=== PATIENT | male | born 1970 | race Caucasian/White ===

== ENCOUNTER 2024-08-20 08:05 | Inpatient (IN) | payer OTHER ==
[~2024-08-20] VITALS: Ht 180.3 cm; Wt 85.9 kg
[2024-08-20] MEDS ORDERED: Ondansetron HCl 2 MG / ML 2ML Vial IV ONE (11:10)
[2024-08-20] MEDS ORDERED: Morphine Sulfate 4 MG/1 ML Injection IV ONE (11:10)
[2024-08-20 11:53] LABS: BASOPHILS ABSOLUTE AUTO 0.09 K/mm3 (0.00-0.23); BASOPHILS PERCENT AUTO 1 % (0-2); EOSINOPHILS ABSOLUTE AUTO 0.04 K/mm3 (0.00-0.68); EOSINOPHILS PERCENT AUTO 0 % (0-6); Hematocrit 48.6 % (37.0-53.0); Hemoglobin 17.3 g/dL (13.5-17.5); IMMATURE GRAN ABSOLUTE AUTO 0.05 K/mm3 (0.00-0.10); IMMATURE GRAN PERCENT AUTO 0 % (0-1); LYMPHOCYTES PERCENT AUTO 15 % (21-46); MONOCYTES ABSOLUTE AUTO 0.64 K/mm3 (0.16-1.47); MONOCYTES PERCENT AUTO 4 % (4-13); Mean Corpuscular HGB 31.6 pg (26.0-34.0); Mean Corpuscular HGB Conc 35.6 g/dL (31.5-36.5); Mean Corpuscular Volume 89 fL (80-100); Mean Platelet Volume 9.1 fL (9.1-12.4); NEUTROPHILS ABSOLUTE AUTO 11.61 K/mm3 (1.96-9.15); NEUTROPHILS PERCENT AUTO 79 % (41-73); Platelet Count 161 K/mm3 (150-400); RDW Coefficient Variation 12.2 % (11.7-14.2); RDW Standard Deviation 40.3 fL (35.1-46.3); Red Blood Cell Count 5.48 M/mm3 (4.30-5.90); White Blood Cell Count 14.63 K/mm3 (4.00-11.30)
[2024-08-20] MEDS ORDERED: Nicotine 14 MG PATCH TOP ONE (12:00)
[2024-08-20 12:26] LABS: Albumin, Blood 3.4 g/dL (3.4-5.0); Albumin/Globulin Ratio 0.9 (0.8-1.8); Bun/Creatinine Ratio 19.5 (12.0-20.0); Calcium, Blood 8.7 mg/dL (8.5-10.1); Creatinine, Blood 0.82 mg/dL (0.60-1.20); Globulin, Blood 3.7 g/dL (2.2-4.0); Magnesium, Blood 2.2 mg/dL (1.6-2.4); Potassium, Blood 4.1 mmol/L (3.5-5.5); Total Protein, Blood 7.1 g/dL (6.4-8.2)
[2024-08-20 13:28] LABS: Source, Urine Clean Catch
[2024-08-20 13:50] LABS: Appearance, Urine Clear (Clear); Bilirubin, Urine Neg (Neg); Blood, Urine Neg (Neg); Color, Urine Yellow (P-Yellow); Glucose Qualitative, Urine 4+ (Neg); Ketones, Urine 2+ (Neg); Leukocyte Esterase, Urine Neg (Neg); Nitrite, Urine Neg (Neg); Protein, Urine Neg (Neg); Specific Gravity, Urine 1.015 (1.003-1.022); Urobilinogen, Urine 1+ (Normal)
[2024-08-20] MEDS ORDERED: Ondansetron HCl 2 MG / ML 2ML Vial IV PRN (17:25)
[2024-08-20] MEDS ORDERED: FLU VACC TS2024-25(6MOS UP)/PF 45 MCG/0.5 ML SYRINGE IM SCH (17:25)
[2024-08-20] MEDS ORDERED: Morphine Sulfate 4 MG/1 ML Injection IV PRN (17:30)
[2024-08-20] MEDS ORDERED: Insulin Human Lispro 100 Units/ML 3ML Syringe SC SCH (18:00)
[2024-08-20] MEDS ORDERED: Lactated Ringer's 1,000 ML IV SCH (18:00)
[2024-08-20 18:29] VITALS: BP 144/79
[2024-08-20 19:17] VITALS: BP 124/68
--- NOTE | 2024-08-20 19:23 | NUR ---
PT ARRIVED TO THE ROOM FROM ER AT APPROXIMATELY 1800. PAIN MANAGED UPON ARRIVAL. PT ORIENTED TO ROOM, UNIT AND CALL LIGHT USE. LUNG SOUNDS CLEAR, BOWEL SOUND PRESENT BUT HYPOACITVE, HEART SOUNDS REGULAR. PT ASSISTED INTO GOWN. PT HAS DISCOLORATION TO SKIN OVER HERNIA SITE, OTHERWISE SKIN WNL. BEDSIDE REPORT GIVEN TO WALT PEDRO RN.
[2024-08-20] MEDS ORDERED: GLIP5 PO (20:16)
[2024-08-20] MEDS ORDERED: METF500 PO (20:17)
[2024-08-20] MEDS ORDERED: ROSUVASTATIN CA20 MG PO (20:18)
[2024-08-20] MEDS ORDERED: LISINOPRIL-HCT1 EAC1 PO (20:20)
[2024-08-21 05:17] VITALS: BP 132/82
[2024-08-21 05:40] LABS: BASOPHILS ABSOLUTE AUTO 0.05 K/mm3 (0.00-0.23); BASOPHILS PERCENT AUTO 1 % (0-2); EOSINOPHILS ABSOLUTE AUTO 0.26 K/mm3 (0.00-0.68); EOSINOPHILS PERCENT AUTO 3 % (0-6); Hematocrit 44.8 % (37.0-53.0); Hemoglobin 15.9 g/dL (13.5-17.5); IMMATURE GRAN ABSOLUTE AUTO 0.05 K/mm3 (0.00-0.10); IMMATURE GRAN PERCENT AUTO 1 % (0-1); LYMPHOCYTES ABSOLUTE AUTO 3.51 K/mm3 (0.84-5.20); LYMPHOCYTES PERCENT AUTO 34 % (21-46); MONOCYTES ABSOLUTE AUTO 0.63 K/mm3 (0.16-1.47); MONOCYTES PERCENT AUTO 6 % (4-13); Mean Corpuscular HGB 31.7 pg (26.0-34.0); Mean Corpuscular HGB Conc 35.5 g/dL (31.5-36.5); Mean Corpuscular Volume 89 fL (80-100); Mean Platelet Volume 9.4 fL (9.1-12.4); NEUTROPHILS ABSOLUTE AUTO 5.69 K/mm3 (1.96-9.15); NEUTROPHILS PERCENT AUTO 56 % (41-73); Platelet Count 154 K/mm3 (150-400); RDW Coefficient Variation 12.4 % (11.7-14.2); RDW Standard Deviation 40.8 fL (35.1-46.3); Red Blood Cell Count 5.02 M/mm3 (4.30-5.90); White Blood Cell Count 10.19 K/mm3 (4.00-11.30)
[2024-08-21 06:03] LABS: Albumin, Blood 2.9 g/dL (3.4-5.0); Albumin/Globulin Ratio 0.9 (0.8-1.8); Bilirubin, Total 1.1 mg/dL (0.1-1.0); Bun/Creatinine Ratio 15.4 (12.0-20.0); Calcium, Blood 8.3 mg/dL (8.5-10.1); Creatinine, Blood 0.84 mg/dL (0.60-1.20); Globulin, Blood 3.2 g/dL (2.2-4.0); Potassium, Blood 3.9 mmol/L (3.5-5.5); Total Protein, Blood 6.1 g/dL (6.4-8.2)
[2024-08-21 07:33] VITALS: BP 121/86
--- NOTE | 2024-08-21 08:03 | NUR ---
SHIFT SUMMARY NOC. PT ADMIT FOR ENCARCERATED HERNIA. PT HAS GRAPEFRUIT SIZE HERNIA TO THE RIGHT OF UMBILICUS. MARGINS MARKED AROUND REDNESS AT START OF SHIFT. REDNESS REMAINS WITHIN MARGINS. PT MEDICATED WITH IV MORPHINE FOR PAIN. PT NPO THIS SHIFT, ICE CHIPS STOPPED AT 0300 FOR POTENTIAL PROCEDURE. BED IN LOWEST POSITION, CALL LIGHT IN REACH.
--- NOTE | 2024-08-21 08:48 | NUR ---
DR AGUAYO IN ROOM FOR ZIYAD
[2024-08-21] MEDS ORDERED: Nicotine 21 MG PATCH TOP SCH (09:00)
--- NOTE | 2024-08-21 14:11 | NUR ---
NEW IV ESTABLISHED IN R FOREARM TO MAKE IT EASIER FOR IVF TO INFUSE W/O OCCLUSION. PT HAS ADEQUATE PAIN CONTROL AT THIS TIME. PT HAS BEEN WORKING ON REDUCING THE HERNIA IN ABD BUT IT IS STILL PROTRUDING. REDNESS HAS NOT SPREAD OUTSIDE OF LINES MARKED BY NOC SHIFT NURSE. IVF INFUSING PER ORDER. PT HAS NOT VOIDED SINCE THIS MORNING. PT OK TO TAKE SIPS OF WATER PER DR AGUAYO AND HAS BEEN GEENA WELL. CALL LIGHT IN REACH.
[2024-08-21 14:38] VITALS: BP 140/70
--- NOTE | 2024-08-21 17:45 | NUR ---
PT STS HE HAS LOW BACK PAIN. STS IT STARTED THIS MORNING AND HAS BEEN GETTING WORSE. PT HAS VOIDED TWICE TOTAL OF 750ML TEA COLORED URINE. DR PEÑA CALLED AND NOTIFIED.
--- NOTE | 2024-08-21 18:15 | NUR ---
SHIFT SUMMARY PT A/OX. GEENA SIPS OF WATER. IVF INFUSING PER ORDER. PT VOIDED X2. HERNIA STILL PRESENT, NOT ABLE TO KEEP REDUCED. MEDICATED PRN FOR PAIN. DR AGUAYO AWARE. NO ISSUES DURING SHIFT. AMB WITH SBA FOR CORD MANAGEMENT.
[2024-08-21 20:16] VITALS: BP 143/88
[2024-08-22 05:09] VITALS: BP 158/85
[2024-08-22 05:46] LABS: Bun/Creatinine Ratio 13.8 (12.0-20.0); Calcium, Blood 8.2 mg/dL (8.5-10.1); Creatinine, Blood 0.8 mg/dL (0.60-1.20); Potassium, Blood 4.1 mmol/L (3.5-5.5)
--- NOTE | 2024-08-22 07:27 | NUR ---
SHIFT SUMMARY NOC. PT ADMIT FOR ENCARCERATED HERNIA. PT HAS LARGE PROTRUDING HERNIA IN THE PERIUMBILICAL AREA AND TOWARDS RIGHT SIDE. REDNESS WITHIN MARKED MARGINS RECEEDING. PT'S PAIN MANAGED WITH 4MG OF IV MORPHINE. PT DENIES N/V, NPO STATUS BUT ALLOWED SIPS OF WATER AND ICE CHIPS, TOLERATING. PT CONTINUES TO HAVE ACUTE BACK PAIN RELIEVED WITH MEDS. URINE COLOR IS IMPROVING THROUGHOUT SHIFT. BED IN LOWEST POSITION. CALL LIGHT IN REACH.
[2024-08-22 07:28] VITALS: BP 129/73
[2024-08-22] MEDS ORDERED: Ipratropium/Albuterol SulF 2.5-0.5MG/3 ML Amp INH SCH (09:05)
[2024-08-22] MEDS ORDERED: Sod Phosphate/Sod Biphosphate 132 ML BTL PR ONE (11:45)
[2024-08-22] MEDS ORDERED: Ketorolac Tromethamine 30mg Vial IV ONE (14:00)
--- NOTE | 2024-08-22 15:06 | NUR ---
N/V PT RATING PAIN 10/10 AFTER FAILED SWALLOW EVALUATION, REPORTING N/V AND SEVERE ABD AFTERWARDS. MEDICATED PER EMAR FOR PAIN AND N/V, WHICH IS NOT MANAGING SX WELL. DR. AGUAYO NOTIFIED, ORDER FOR NG OBTAINED. WILL IMPLEMENT ORDERS DIRECTED.
[2024-08-22 15:34] VITALS: BP 121/79
[2024-08-22 19:17] VITALS: BP 132/93
--- NOTE | 2024-08-22 19:35 | NUR ---
SHIFT SUMMARY A/OX4 WITH VSS. NPO. PT REFUSING NG TUBE, RISK VERSUS BENEFITS EDUCATION PROVIDED. CHARGE AWARE. INTERMITTENT N/V, 400ML OUT THIS SHIFT OF GREEN FLUID. NS INFUSING PER ORDERS. MEDICATED PER EMAR FOR PAIN, REPORTS RELIEF . SWALLOW EVALUATION COMPLETED TODAY. PLAN FOR POTENTIAL SURGERY TOMORROW. PT UP IND IN ROOM. HAS CALL LIGHT IN REACH. PT ABLE TO MAKE NEEDS KNOWN. REPORT GIVEN TO DAY RNWALT
[2024-08-22] MEDS ORDERED: Ketorolac Tromethamine 15mg Vial IV PRN (20:00)
--- NOTE | 2024-08-22 23:30 | NUR ---
NG TUBE PLACED PER ORDERS. NG TUBE PLACED INTO RIGHT NARE ON FIRST ATTEMPT AFTER PT MEDICATED FOR PAIN WITH MORPHINE. EDUCATION PROVIDED PRIOR TO PROCEDURE. PT GAVE VERBAL CONSENT. PT TOLERATED WELL WITH VERBALIZED IMPROVEMENT OF PAIN, AND N/V. DISTENSION VISIBLY IMPROVED. SEE I&OS FOR DETAILS ON QUANTITY.
[2024-08-23] VITALS (20 sets, daily range): BP systolic 114–152; BP diastolic 78–92
--- NOTE | 2024-08-23 00:04 | NUR ---
COMMUNICATION AFTER NG TUBE PLACEMENT, RESIDENT CAME TO FLOOR. TALKED WITH RESIDENT ABOUT NEEDING A CHEST X-RAY FOR PLACEMENT OF NG TUBE. PT HAD PUT OUT OVER 2000MLS AFTER PLACEMENT. RESIDENT DECICDED NO NEED FOR PLACEMENT CHECK DUE TO COPIUOS AMOUNTS OF OUTPUT.
[2024-08-23 04:15] LABS: Hematocrit 50.8 % (37.0-53.0); Hemoglobin 18.4 g/dL (13.5-17.5)
[2024-08-23 04:34] LABS: Bun/Creatinine Ratio 14.9 (12.0-20.0); Creatinine, Blood 1.74 mg/dL (0.60-1.20); Potassium, Blood 3.6 mmol/L (3.5-5.5)
[2024-08-23 07:46] LABS: BASOPHILS ABSOLUTE AUTO 0.04 K/mm3 (0.00-0.23); BASOPHILS PERCENT AUTO 1 % (0-2); EOSINOPHILS ABSOLUTE AUTO 0.07 K/mm3 (0.00-0.68); EOSINOPHILS PERCENT AUTO 1 % (0-6); IMMATURE GRAN ABSOLUTE AUTO 0.02 K/mm3 (0.00-0.10); IMMATURE GRAN PERCENT AUTO 0 % (0-1); LYMPHOCYTES ABSOLUTE AUTO 2.12 K/mm3 (0.84-5.20); LYMPHOCYTES PERCENT AUTO 37 % (21-46); MONOCYTES ABSOLUTE AUTO 0.83 K/mm3 (0.16-1.47); MONOCYTES PERCENT AUTO 14 % (4-13); Mean Corpuscular HGB 31.3 pg (26.0-34.0); Mean Corpuscular HGB Conc 35.3 g/dL (31.5-36.5); Mean Corpuscular Volume 89 fL (80-100); Mean Platelet Volume 10.2 fL (9.1-12.4); NEUTROPHILS ABSOLUTE AUTO 2.69 K/mm3 (1.96-9.15); NEUTROPHILS PERCENT AUTO 47 % (41-73); Platelet Count 215 K/mm3 (150-400); RDW Coefficient Variation 12.4 % (11.7-14.2); RDW Standard Deviation 40.8 fL (35.1-46.3); Red Blood Cell Count 5.81 M/mm3 (4.30-5.90); White Blood Cell Count 5.77 K/mm3 (4.00-11.30)
--- NOTE | 2024-08-23 08:02 | NUR ---
SHIFT SUMMARY NOC. PT ADMIT FOR ENCARCERRATED HERNIA. PT HAS LARGE HERNIA IN RIGHT SIDE OF UMBILICUS. REDNESS OUTLINED ON ADMIT REMAINS INSIDE MARGINS. DISTENSION GREATLY IMPROVED POST NG TUBE PLACEMENT. LARGE AMOUNTS OF GREEN/BROWN OUTPUT PULLED WITH LIS. PT'S PAIN MANAGED WITH MORPHINE. PT DENIES NEED FOR PAIN MEDS AFTER NG PLACEMENT. PT NPO STATUS WITH SCANT ICE CUBES FOR THROAT DISCOMFORT. PT REPORTS IMPROVEMENT IN ACUTE BACK PAIN WITH NG PLACEMENT. DISCUSSED DECREASED KIDNEY FUNCTION IN LABS WITH ONCOMING NURSE ARACELIS MCNEILL RN. PT VOIDING AND HAD UNMEASURED VOIDS, DISCUSSED STRICT I&OS WITH PT. PT VERBALIZED UNDERSTANDING. CALL LIGHT IN REACH.
[2024-08-23] MEDS ORDERED: Morphine Sulfate 4 MG/1 ML Injection IV PRN (08:05)
[2024-08-23] MEDS ORDERED: Albuterol 2.5 MG/3 ML VIAL INH PRN (08:30)
[2024-08-23] MEDS ORDERED: Lactated Ringer's 1,000 ML IV SCH ×3 (09:00→22:31)
--- NOTE | 2024-08-23 13:23 | NUR ---
History, Chart, Medications and Allergies reviewed before start of procedure. Patient confirms NPO status and agrees with scheduled surgery. Patient's NG to low intermittent sx. Continuous biox intact. Biox 92% on 4l O2/NC. Patient chooses to sleep when not spoken to, but responds promptly and appropriately to questions and instructions.
[2024-08-23] MEDS ORDERED: Piperacillin/Tazobactam Sod 3.375 GM in NS 100 ML IV SCH (13:50)
[2024-08-23] MEDS ORDERED: Sugammadex Sodium 200 MG/2ML SDV (100 MG/ML) ONE (14:03)
[2024-08-23] MEDS ORDERED: Ondansetron HCl 2 MG / ML 2ML Vial ONE (14:03)
[2024-08-23] MEDS ORDERED: Ketamine HCl 100 MG / ML 5ML Vial ONE (14:03)
[2024-08-23] MEDS ORDERED: HYDROmorphone HCl/Pf 1MG SYR ONE (14:03)
[2024-08-23] MEDS ORDERED: propofoL 40 ML IV ONE (14:03)
[2024-08-23] MEDS ORDERED: Dexamethasone Sod Phos 10 MG/ML 1ML VIAL ONE ×2 (14:03→18:27)
[2024-08-23] MEDS ORDERED: Rocuronium Bromide 10 MG/ML 5ML Injection IV ONE ×2 (14:03→17:19)
--- NOTE | 2024-08-23 14:18 | NUR ---
PATIENT CARE TURNED OVER TO VICKIE TALAVERA RN. REPORT GIVEN.
[2024-08-23] MEDS ORDERED: propofoL 100 ML IV ONE (14:59)
[2024-08-23] MEDS ORDERED: Bupivacaine 0.5% HCl 5 MG/ML 30MLVIAL ONE (15:04)
[2024-08-23] MEDS ORDERED: Piperacillin/Tazobactam Sod 3.375 GM ONE (15:22)
--- NOTE | 2024-08-23 16:25 | NUR ---
08/23/24 9315 Claire Aly BRUISE NOTED UNDERNEATH BLOOD PRESSURE CUFF ON RIGHT UPPER ARM WHEN POSITIONING PATIENT PRIOR TO START OF PROCEDURE. AWARE. BLOOD PRESSURE CUFF WAS READJUSTED TO AVOID BRUISE.
[2024-08-23] MEDS ORDERED: Phenylephrine HCl 100 MCG/ML-NS 10MLSYR (1MG/10ML) ONE (16:40)
[2024-08-23] MEDS ORDERED: FentaNYL Citrate 50 MCG/ML 2 ML Injection ONE ×2 (17:49→18:45)
[2024-08-23] MEDS ORDERED: propofoL 20 ML IV ONE (18:55)
--- NOTE | 2024-08-23 19:26 | NUR ---
SHIFT SUMMARY PT PICKED UP FOR SURGERY AROUND 1245, PT HAS BEEN BACK THERE SINCE, PER PACU THEY ARE ESTIMATING AFTER SHIFT CHANGE BEFORE HE IS FINISHED. NO ACUTE EVENTS THIS ON THE FLOOR.
[2024-08-23] MEDS ORDERED: Albuterol 2.5 MG/3 ML VIAL ONE (20:47)
[2024-08-24] VITALS (7 sets, daily range): BP systolic 115–137; BP diastolic 73–86
[2024-08-24] MEDS ORDERED: Piperacillin/Tazobactam Sod 3.375 GM in NS 100 ML IV SCH
--- NOTE | 2024-08-24 01:30 | NUR ---
POSTOP DESATS PT AWAKE IN BED WITH 02 CANNULA RESTING ON PTS CHEST.PT SATS 83-87% RA.PT HAS HAD DESATS WITH POSTOP VS PT ADMITS TO REMOVING HIS 02 WHEN IT "IRRITATES " HIM. THIS RN REPLACED O2 AND DISCUSSED RISKS WITH PT.PT VERB UNDERSTANDING OF RISK.SATS GREATER THAN 90% WHEN N/C REPLACED.
--- NOTE | 2024-08-24 04:13 | NUR ---
RESPIRATORY STATUS THIS AM, PT NOT ABLE TO MAINTAIN SATS ON 3L O2. PT SATS WERE 87-88%. PT DENIES SOB, AND DOES NOT APPEAR IN RESP DISTRESS. LUNGS CLEAR UPPER LOBES, BUT TIGHT AND DIM IN BASES. ABD IS DISTENDED POST OP, AND PT REPORTS SOME DIFFICULTY GETTING DEEP BREATHS IN A RESULT. NG TUBE IN PLACE AND DRAINING FOR DECOMPRESSION. RESPIRATORY THERAPY CALLED, AND ROUNDED ON PT. RT INCREASED HIGH FLOW NASAL CANNULA TO 15L, HOWEVER SATS WERE STILL 89%. RT RECOMMENDED AIRVO. PT PLACED ON AIRVO WITH SETTINGS PER RT. DR. BAUGH CALLED, SBAR GIVEN AND HE WAS NOTIFIED OF CHANGE IN PT RESPIRATORY STATUS AND THE NEED FOR AIRVO. DR. BAUGH STATES IT IS MORE THAN LIKELY CAUSED BY ABD DISTENTION. RECEIVED ORDER FOR AIRVO. DR. BAUGH TO REVIEW PT CHART AND STATES HE WILL PUT IN ADDITIONAL ORDERS IF NEEDED. AIRVO IN PLACE WITH SETTINGS PER RT. AND SATS ARE CURRENTLY 95%.
--- NOTE | 2024-08-24 04:40 | NUR ---
RESP STATUS PT MAINTAINING SATS AT 95%, PT ON AIRVO, SETTINGS PER RT AT 50L, 92%
[2024-08-24 05:17] LABS: BASOPHILS ABSOLUTE AUTO 0.05 K/mm3 (0.00-0.23); BASOPHILS PERCENT AUTO 1 % (0-2); EOSINOPHILS ABSOLUTE AUTO 0.01 K/mm3 (0.00-0.68); EOSINOPHILS PERCENT AUTO 0 % (0-6); Hemoglobin 15.9 g/dL (13.5-17.5); IMMATURE GRAN ABSOLUTE AUTO 0.01 K/mm3 (0.00-0.10); IMMATURE GRAN PERCENT AUTO 0 % (0-1); LYMPHOCYTES ABSOLUTE AUTO 1.01 K/mm3 (0.84-5.20); LYMPHOCYTES PERCENT AUTO 17 % (21-46); MONOCYTES ABSOLUTE AUTO 0.81 K/mm3 (0.16-1.47); MONOCYTES PERCENT AUTO 14 % (4-13); Mean Corpuscular HGB 31.5 pg (26.0-34.0); Mean Corpuscular HGB Conc 34.6 g/dL (31.5-36.5); Mean Corpuscular Volume 91 fL (80-100); Mean Platelet Volume 9.7 fL (9.1-12.4); NEUTROPHILS ABSOLUTE AUTO 3.91 K/mm3 (1.96-9.15); NEUTROPHILS PERCENT AUTO 67 % (41-73); Platelet Count 212 K/mm3 (150-400); RDW Coefficient Variation 12.5 % (11.7-14.2); Red Blood Cell Count 5.04 M/mm3 (4.30-5.90)
[2024-08-24 06:01] LABS: Bun/Creatinine Ratio 29.5 (12.0-20.0); Calcium, Blood 8.4 mg/dL (8.5-10.1); Creatinine, Blood 1.12 mg/dL (0.60-1.20); Potassium, Blood 3.4 mmol/L (3.5-5.5)
--- NOTE | 2024-08-24 06:07 | NUR ---
CHEST X-RAY FOLLOWED WITH DR. BAUGH REGARDING CHEST X-RAY. DR. BAUGH REVIEWED IMAGING. HE STATES THAT HE DID NOT FIND ANYTHING ACUTE ON X-RAY. NO ADDITIONAL ORDERS AT THIS TIME. PT RESTING IN BED, MAINTAINING SATS ON HEATED HIGHFLOW.
--- NOTE | 2024-08-24 07:31 | NUR ---
SHIFT SUMMARY PT POD O INCARCERATED HERNIA REPAIR. PT ARRIVED TO UNIT FROM PACU A LITTLE AFTER 2100. CLARISA IN PLACE COMPRESSED, WITH MIDLINE INCISION. SMALL AMOUNT OF SHADOWING ON DRESSING UNCHANGED FROM WHEN PT ARRIVED FROM PACU. GAUZE DRESSING TO LEFT ABD WNL, UMBILICAL DRESSING WNL. DEION DRAIN WITH SS DISCHARGE. THIS AM WITH 0400 ASSESSMENT I NOTED A SPONGY BULGE AT UPPER PART OF INCISION ON ABD. IT IS NOT PAINFUL TO TOUCH OR RED. NO INCREASED DRAINAGE AT SURGICAL SITE. LABORATORY ADMINISTRATIVE DIRECTOR GISELA NOTIFIED AND ASSESSED PT. SHE DISCUSSED MONITORING LABS. LABS WNL, HGB STABLE. PT REPORTED MINIMAL PAIN FOR MOST OF THE NIGHT POST OP, BUT DID REPORT SOME INCREASED PAIN THIS AM. IV MORPHINE EFFECTIVE FOR PAIN. PT HAS REQUIERED O2 SINCE ARRIVING FROM PACU AND PRIOR TO SURGERY. PT DESATS WITHOUT O2 IN PLACE. PT OBSERVED BY LABORATORY ADMINISTRATIVE DIRECTOR REMOVING O2 AND REPORTED TO HER THAT HE REMOVED WHEN IT IRRITATED HIM. SEE PREVIOUS NURSES NOTE. PT HAD BEEN ON 3L O2. HOWEVER, AROUND 0330 THIS AM, PT BEGAN REQUIRING MORE O2 TO MAINTAIN SATS ABOVE 90%. PT DENIES SOB, AND RESP APPEAR E/U. LUNGS TIGHT AND DIM IN BASES. PT DOES NOT APPEAR IN ACUTE RESP DISTRESS, DESPITE O2 SATS. ABD HOWEVER IS STILL DISTENDED, AND DR. BAUGH ATTRITUBES THE DISTENTION MAKING IT DIFFICULT TO TAKE DEEP BREATHS IN. CHEST X-RAY ORDERED AND WAS REVIEWED BY AMAURI, AND HE REPORTS NO ACUTE FINDINGS. PT SATS WNL ON AIRVO, AT 95%. NG TUBE TO LIS, WITH GREEN DISCHARGE. PT ABLE TO HAVE SMALL AMOUNT OF ICE CHIPS PER ORDERS. PT NO OOB YET SINCE SURGERY. PT HEIN PATENT AND DRAINING. BED IN LOWEST POSITION, CALL LIGHT WITHIN REACH.
[2024-08-24] MEDS ORDERED: Potassium Chl 10MEQ/Water100ML 100 ML IV ONE (07:50)
[2024-08-24] MEDS ORDERED: NS 250 ML IV PRN (08:10)
[2024-08-24] MEDS ORDERED: Morphine Sulfate 4 MG/1 ML Injection IV ONE (08:10)
[2024-08-24] MEDS ORDERED: MORPHINE SULFATE 1 MG/ML IV PRN (10:40)
[2024-08-24] MEDS ORDERED: Insulin Human Lispro 100 Units/ML 3ML Syringe SC SCH (12:00)
[2024-08-24] MEDS ORDERED: Morphine Sulfate 4 MG/1 ML Injection IV PRN (13:20)
[2024-08-24] MEDS ORDERED: Enoxaparin 40 MG/0.4 ML SYR SC SCH (19:00)
--- NOTE | 2024-08-24 19:16 | NUR ---
SHIFT SUMMARY PT IS POD#1. PAIN MANAGED WITH MORPHINE. PT'S RESP STATUS IS IMPROVING, PT NOW ON AIRVO AT 50L AND 70%. PT ENCOURAGED TO USE INCENTIVE SPIROMETER. PT IS 1 ASSIST FOR HELP WITH LINES AND TUBES WHEN OOB. PT USES CALL LIGHT APPROPRIATELY. VSS. BEDSIDE REPORT GIVEN TO MAYELA RN.
[2024-08-25 04:25] VITALS: BP 136/88
--- NOTE | 2024-08-25 04:33 | NUR ---
SHIFT SUMMAARY NO ACUTE CHANGES TO REPORT OVERNIGHT. PT REMAINS ON HEATED HIGH RODOLFO, BUT HAS BEEN BEEN TITRATED DOWN PER RESPIRATORY THERAPY. SETTINGS CURRENTLY AT 50L, 68%. PT HAS BEEN TOLERATING AND SATS WNL. RESP E/U. DEION DRAIN LEAKING AT INSERTION SITE, DRESSING CHANGED THIS SHIFT BY PIPELINE DISPATCHER. MIDLINE INCISION W CLARISA COMPRESSED. NG TUBE TO LIS WITH GREEN DISCHARGE. PT TOLERATING ICE CHIPS PER ORDERS. IVF INFUSING. HEIN PATENT AND DRAINING. PT MEDICATED FOR PAIN PRN PER ORDERS. VITALS STALE. BED IN LOWEST POSITION, CALL LIGHT WITHIN REACH.
[2024-08-25 05:42] LABS: Hematocrit 44.6 % (37.0-53.0); Hemoglobin 14.8 g/dL (13.5-17.5); Mean Corpuscular HGB 31.5 pg (26.0-34.0); Mean Corpuscular HGB Conc 33.2 g/dL (31.5-36.5); Mean Corpuscular Volume 95 fL (80-100); Mean Platelet Volume 9.4 fL (9.1-12.4); Platelet Count 210 K/mm3 (150-400); RDW Coefficient Variation 12.6 % (11.7-14.2); White Blood Cell Count 7.41 K/mm3 (4.00-11.30)
[2024-08-25 06:07] LABS: BAND PERCENT MAN 18 % (0-8); BASOPHILS ABSOLUTE MAN 0.07 K/mm3 (0.00-0.23); BASOPHILS PERCENT MAN 1 % (0-2); EOSINOPHILS ABSOLUTE MAN 0.29 K/mm3 (0.00-0.68); EOSINOPHILS PERCENT MAN 4 % (0-6); LYMPHOCYTES ABSOLUTE MAN 1.03 K/mm3 (0.84-5.20); LYMPHOCYTES PERCENT MAN 14 % (21-46); MONOCYTES ABSOLUTE MAN 0.81 K/mm3 (0.16-1.47); MONOCYTES PERCENT MAN 11 % (4-13); NEUTROPHILS ABSOLUTE MAN 5.18 K/mm3 (1.96-9.15); SEG NEUTROPHILS PERCENT MAN 52 % (41-73); TOTAL CELLS COUNTED 100
[2024-08-25 06:14] LABS: Albumin, Blood 2.3 g/dL (3.4-5.0); Albumin/Globulin Ratio 0.6 (0.8-1.8); Bilirubin, Total 0.5 mg/dL (0.1-1.0); Bun/Creatinine Ratio 22.4 (12.0-20.0); Calcium, Blood 8.4 mg/dL (8.5-10.1); Creatinine, Blood 0.94 mg/dL (0.60-1.20); Globulin, Blood 4.1 g/dL (2.2-4.0); Phosphorus, Blood 1.7 mg/dL (2.5-4.9); Potassium, Blood 3.6 mmol/L (3.5-5.5); Total Protein, Blood 6.4 g/dL (6.4-8.2)
[2024-08-25 07:03] VITALS: BP 135/92
[2024-08-25] MEDS ORDERED: Potassium Phosphate Dibasic 15 MM in Dextrose 5% 250 ML IV STA (07:13)
[2024-08-25] MEDS ORDERED: TPN Consult Notification XX ONE (11:35)
[2024-08-25 15:42] VITALS: BP 112/71
[2024-08-25] MEDS ORDERED: Parenteral Electolytes 40 ML,Potassium Phosphate Dibasic 30 MM,Multivitamins 10 ML,ZINC... IV SCH (17:00)
[2024-08-25 19:18] VITALS: BP 126/75
--- NOTE | 2024-08-25 20:10 | NUR ---
SHIFT SUMMARY PT IS POD#2. PAIN MANAGED WITH MORPHINE. PT IS A SBA FOR HELP WITH LINES AND TUBES WHEN OOB. HE WAS ABLE TO COME OFF OF AIRVO TODAY, PT NOW GETTING O2 VIA NC. HEIN CATHETER OUT AND PT HAS VOIDED, PT USING URINAL. . PT IS CONSUMING ICE CHIPS, HE HAS BEEN PROVIDED EDUCATION ABOUT BOWEL REST BUT IS UNWILLING TO DECREASE ICE CHIP INTAKE. PT BECOMES DEFENSIVE/IRRITABLE WHEN EDUCATION ABOUT BOWEL REST IS PROVIDED. PT HAS SOME MOIST BREATH SOUNDS THIS EVENING. PT HAS BEEN EDUCATED X3 ABOUT INCENTIVE SPIROMETER USE, HE HAS DECLINED TO USE THE IS UNTIL THIS EVENING WHEN HE DEMONSTRATED USE TO THIS RN. PT WORKED WITH PHYSICAL THERAPY TODAY AND SAT UP TO THE RECLINER X1, HE ALSO AMBULATED. PT HAD IV POTASSIUM TODAY AND PPN STARTED. PT USES CALL LIGHT APPROPRIATELY. BEDSIDE REPORT GIVEN TO NOC RN.
[2024-08-26 03:26] VITALS: BP 123/74
[2024-08-26 05:33] LABS: BASOPHILS ABSOLUTE AUTO 0.05 K/mm3 (0.00-0.23); BASOPHILS PERCENT AUTO 1 % (0-2); EOSINOPHILS ABSOLUTE AUTO 0.55 K/mm3 (0.00-0.68); EOSINOPHILS PERCENT AUTO 6 % (0-6); Hematocrit 42.4 % (37.0-53.0); Hemoglobin 14.3 g/dL (13.5-17.5); IMMATURE GRAN ABSOLUTE AUTO 0.11 K/mm3 (0.00-0.10); IMMATURE GRAN PERCENT AUTO 1 % (0-1); LYMPHOCYTES ABSOLUTE AUTO 2.43 K/mm3 (0.84-5.20); LYMPHOCYTES PERCENT AUTO 27 % (21-46); MONOCYTES ABSOLUTE AUTO 0.76 K/mm3 (0.16-1.47); MONOCYTES PERCENT AUTO 8 % (4-13); Mean Corpuscular HGB 31.6 pg (26.0-34.0); Mean Corpuscular HGB Conc 33.7 g/dL (31.5-36.5); Mean Corpuscular Volume 94 fL (80-100); Mean Platelet Volume 9.5 fL (9.1-12.4); NEUTROPHILS ABSOLUTE AUTO 5.28 K/mm3 (1.96-9.15); NEUTROPHILS PERCENT AUTO 58 % (41-73); Platelet Count 214 K/mm3 (150-400); RDW Coefficient Variation 12.4 % (11.7-14.2); RDW Standard Deviation 42.9 fL (35.1-46.3); Red Blood Cell Count 4.53 M/mm3 (4.30-5.90); White Blood Cell Count 9.18 K/mm3 (4.00-11.30)
[2024-08-26 06:04] LABS: Anion Gap 9 mmol/L (3-11); Blood Urea Nitrogen 17 mg/dL (8-24); CO2, Blood 30 mmol/L (21-32); Calcium, Blood 8.5 mg/dL (8.5-10.1); Chloride, Blood 107 mmol/L (98-108); Creatinine, Blood 0.85 mg/dL (0.60-1.20); Glomerular Filtration Rate 102 (60-); Glucose, Blood 226 mg/dL (70-99); Magnesium, Blood 2.6 mg/dL (1.6-2.4); Phosphorus, Blood 2.1 mg/dL (2.5-4.9); Potassium, Blood 3.5 mmol/L (3.5-5.5); Sodium, Blood 142 mmol/L (136-145); Triglycerides 305 mg/dL (30-160)
--- NOTE | 2024-08-26 06:05 | NUR ---
SUMMARY PT REPORTS PASSING SMALL AMNTS FLATUS TONIGHT.DENIES NAUSEA.VOIDING WITHOUT DIFF.
[2024-08-26 07:16] VITALS: BP 125/79
[2024-08-26] MEDS ORDERED: Melatonin 3 MG Tab PO PRN (10:00)
[2024-08-26] MEDS ORDERED: Insulin Glargine-Yfgn 100 Unit/mL 3 ML SYR SC SCH ×2 (12:00→21:00)
[2024-08-26] MEDS ORDERED: TPN Consult Notification XX ONE (12:20)
[2024-08-26 14:29] VITALS: BP 132/81
[2024-08-26] MEDS ORDERED: Parenteral Electolytes 40 ML,Potassium Phosphate Dibasic 30 MM,Multivitamins 10 ML,ZINC... IV SCH (17:00)
[2024-08-26 19:04] VITALS: BP 133/79
--- NOTE | 2024-08-26 20:05 | NUR ---
SHIFT SUMMARY POD3 ABDOMINAL HERNIA REPAIN, A/OX4, VSS, TOLERATING NG SET TO LIS, NPO WITH ICE CHIPS ONLY, UP IN THE ROOM WITH SBA FOR LINE/CORD MANAGEMENT, DEION DRAIN PUTTING OTU SS DRAINAGE,SERENA FLATUS THIS SHIFT, NO ACUTE EVENTS THIS SHIFT, CALL LIGHT IN REACH.
[2024-08-27 05:16] VITALS: BP 122/79
[2024-08-27 05:51] LABS: Bun/Creatinine Ratio 18.7 (12.0-20.0); Calcium, Blood 8.7 mg/dL (8.5-10.1); Creatinine, Blood 0.86 mg/dL (0.60-1.20); Magnesium, Blood 2.3 mg/dL (1.6-2.4); Phosphorus, Blood 2.9 mg/dL (2.5-4.9); Potassium, Blood 3.6 mmol/L (3.5-5.5)
[2024-08-27 07:18] VITALS: BP 118/75
--- NOTE | 2024-08-27 07:18 | NUR ---
SHIFT SUMMARY NOC. PT POD 4 FOR HERNIA REPAIR AND SMALL BOWEL RESECTION. PT'S CLARISA HAS OUTLINED DRIED S/S DRAINAGE PRESENT AND LIGHT DRAINAGE ON LAP SITE X1 TO LEFT OF UMBILICUS. OTHER 2 LAP SITES C/D/I. DEION DRAIN PRODUCING SANG OUTPUT. NG TUBE CONNECTED TO LIS AND PRODUCING LIGHT BROWN OUTPUT. PPN RUNNING PER EMAR. PT VOIDING AND DENIES N/V. PT NPO ASIDE FOR ICE CHIPS FOR COMFORT. PT MEDICATED FOR PAIN WITH MORPHINE 2MG WITH REPORTED RELIEF OF SX. CALL LIGHT IN REACH.
--- NOTE | 2024-08-27 11:54 | NUR ---
Pt. is awake in bed and welcomes my visit. Pt. is pleasant. Facilitate a life review and Pt. verbalizes that he is not from this area, but has been in communication with family. Listen with empathy and a calming presence. Pt. verbalizes his encouragement for the progress that he has made. Pt. displays evidence of being encourgaed, aware and engaged. Prayed with Pt. Pt. verbalizes gratitude for the spiritual care visit.
[2024-08-27 14:43] VITALS: BP 140/82
--- NOTE | 2024-08-27 19:16 | NUR ---
SHIFT SUMMARY POD 4 LAP TO OPEN HERNIA REDUCTION WITH SMALL BOWEL RESECTION, A/OX4, VSS, TOLERATING PO SIPS ONLY PER SURGERY, VOIDING INDEPENDENTLY, NG TUBE REMVOED THIS SHIFT, MEDICATED ONE TIME THIS SHIFT FOR PAIN. NO ACUTE EVENTS THIS SHIFT, CALL LIGHT IN REACH.
[2024-08-27 20:29] VITALS: BP 135/84
[2024-08-28 05:20] LABS: BASOPHILS PERCENT AUTO 1 % (0-2); EOSINOPHILS ABSOLUTE AUTO 0.43 K/mm3 (0.00-0.68); EOSINOPHILS PERCENT AUTO 4 % (0-6); Hemoglobin 14.4 g/dL (13.5-17.5); IMMATURE GRAN ABSOLUTE AUTO 0.41 K/mm3 (0.00-0.10); IMMATURE GRAN PERCENT AUTO 4 % (0-1); LYMPHOCYTES PERCENT AUTO 34 % (21-46); MONOCYTES ABSOLUTE AUTO 0.77 K/mm3 (0.16-1.47); MONOCYTES PERCENT AUTO 7 % (4-13); Mean Corpuscular HGB 31.6 pg (26.0-34.0); Mean Corpuscular HGB Conc 35.1 g/dL (31.5-36.5); Mean Corpuscular Volume 90 fL (80-100); Mean Platelet Volume 9.3 fL (9.1-12.4); NEUTROPHILS PERCENT AUTO 51 % (41-73); Platelet Count 237 K/mm3 (150-400); RDW Coefficient Variation 11.9 % (11.7-14.2); RDW Standard Deviation 39.2 fL (35.1-46.3); Red Blood Cell Count 4.56 M/mm3 (4.30-5.90); White Blood Cell Count 10.71 K/mm3 (4.00-11.30)
[2024-08-28 05:26] VITALS: BP 128/81
--- NOTE | 2024-08-28 05:27 | NUR ---
SHIFT SUMMARY NO ACUTE CHANGES TO REPORT OVERNIGHT. PT CONTINUES TO TOLERATE NG TUBE REMOVAL. NO N/V OVERNIGHT. PT STILL REPORTING INTERMITTENT ABD PAIN THAT IS RELEIVED WITH MEDS PER EMAR. PT REPORTS THAT HE IS PASSING GAS, BOWEL TONES ARE HYPERACTIVE. RESP E/U ON RA, SATS WNL ON PATRICIA BIOX. PT HAS BEEN INDEPENDENT IN THE ROOM. VITALS STABLE. BED IN LOWEST POSITION, CALL LIGHT WITHIN REACH.
[2024-08-28 05:41] LABS: Bun/Creatinine Ratio 15.9 (12.0-20.0); Calcium, Blood 8.5 mg/dL (8.5-10.1); Creatinine, Blood 0.94 mg/dL (0.60-1.20); Magnesium, Blood 2.3 mg/dL (1.6-2.4); Phosphorus, Blood 2.9 mg/dL (2.5-4.9); Potassium, Blood 3.5 mmol/L (3.5-5.5)
[2024-08-28 06:59] VITALS: BP 127/83
[2024-08-28] MEDS ORDERED: HYDROcodone 5-APAP 325 TAB PO PRN (07:20)
--- NOTE | 2024-08-28 12:58 | NUR ---
DRESSING CHANGE: GAUZE AT LAP SITES, GAUZE AROUND DEION DRAIN AND CLARISA DRESSING REMOVED. NEW CLARISA APPLIED AND IS COMPRESSED. DEION DRAIN COVERED WITH CHG TEGADERM DRESSING. LAP SITES LEFT CATHI WITH CHOLE. ALL SURGICAL SITES APPEAR WNL AND PT TOLERATED WELL
[2024-08-28 14:31] VITALS: BP 119/74
--- NOTE | 2024-08-28 19:17 | NUR ---
SUMMARY: PT IS POD 5 HERNIA REPAIR. PT GEENA SMALL AMT OF FULL LIQ DIET, NO N/V. SEVERAL BM'S TODAY. SURGICAL SITES WNL. PPN CONTINUES TO INFUSE. MEDICATED FOR PAIN PRN. PT INDEP IN ROOM AND USES CALL LIGHT. NO ACUTE CONCERNS.
[2024-08-28 19:28] VITALS: BP 127/79
--- NOTE | 2024-08-29 04:18 | NUR ---
SHIFT SUMMARY POD 6 INCARCERATED HERNIA REPAIR PT ABLE TO REST T/O NIGHT. PAIN MANAGED PER EMAR. TOLERATING FULL LIQUID DIET. VOIDING WELL. PPN INFUSING PER ORDERS. PT IND IN THE ROOM. PT REPORTS PASSING GAS. PCIO TO MIDLINE HAS SMALL QUATER SIZE AMOUNT OF DRAINAGE, OTHERWISE C/D/I. X3 LAP SITES CATHI CLOSED WITH CHLOE. DEION IN LUQ HAVING SS DRAINAGE, DRESSING C/D/I. VSS. NO OTHER CONCERNS AT THIS TIME, CALL LIGHT WITHIN REACH
[2024-08-29 04:42] VITALS: BP 140/73
[2024-08-29 04:59] LABS: Hematocrit 41.9 % (37.0-53.0); Hemoglobin 14.7 g/dL (13.5-17.5)
[2024-08-29 06:04] LABS: Bun/Creatinine Ratio 16.5 (12.0-20.0); Calcium, Blood 8.8 mg/dL (8.5-10.1); Creatinine, Blood 0.79 mg/dL (0.60-1.20); Potassium, Blood 4.2 mmol/L (3.5-5.5)
[2024-08-29 07:19] VITALS: BP 140/78
[2024-08-29] MEDS ORDERED: Insulin Glargine-Yfgn 100 Unit/mL 3 ML SYR SC SCH (09:00)
--- NOTE | 2024-08-29 11:02 | NUR ---
DR KEATING IN TO SEE PT.
[2024-08-29 14:11] VITALS: BP 118/73
[2024-08-29] MEDS ORDERED: Insulin Human Lispro 100 Units/ML 3ML Syringe SC SCH (16:30)
--- NOTE | 2024-08-29 18:08 | NUR ---
SUMMARY NO ACUTE CHANGES T/O SHIFT. PT INDEPENDENT IN ROOM. ADVANCED TO REGULAR DIET. APPEARS TO BE TOLERATING. MEDICATED PER ORDERS DURING SHIFT FOR UPPER ABDOMINAL PAIN. DEION PUTTING OUT SS FLUID. CALL LIGHT IN REACH.
[2024-08-29 19:37] VITALS: BP 128/81
[2024-08-30 03:30] VITALS: BP 127/78
--- NOTE | 2024-08-30 04:15 | NUR ---
SHIFT SUMMARY POD 7 HERNIA REPAIR PT ABLE TO REST DURING THE NIGHT. PAIN MANAGED PER EMAR. TOLERATING REG DIET. VOIDING. NADIRA MCKENNA DRESSING HAS SMALL AMOUNT OF SS DRAINAGE, LAP SITES CLOSED WITH CHLOE C/D/I. DEION DRESSING IS C/D/I, DEION DRAINING SS FLUID. VSS. NO OTHER CONCERNS AT THIS TIME, CALL LIGHT WITHIN REACH
[2024-08-30 05:24] LABS: Bun/Creatinine Ratio 15.9 (12.0-20.0); Calcium, Blood 8.4 mg/dL (8.5-10.1); Creatinine, Blood 0.82 mg/dL (0.60-1.20); Potassium, Blood 4.2 mmol/L (3.5-5.5)
[2024-08-30 07:28] VITALS: BP 136/84
[2024-08-30] MEDS ORDERED: HYDACE10B PO (10:56)
[2024-08-30] MEDS ORDERED: NICO21TP TOP (10:56)
[2024-08-30 14:20] VITALS: BP 123/85
--- NOTE | 2024-08-30 16:18 | NUR ---
discharging IV DC'D, CATHETER INTACT. PT TOLERATED WELL. REVIEWED DC INSTRUCTIONS W/PT; VERBALIZED UNDERSTANDING. SIGNED DC PAPERWORK. PT GETTING DRESSED, PLAN TO MEET TAXI AT [facility] AT 1715. CALL LIGHT IN REACH.
[2024-08-30 16:47] VITALS: BP 129/83
--- NOTE | 2024-08-30 17:11 | NUR ---
DISCHARGED PT LEFT UNIT IN WC W/POSSESSIONS AND DC PAPERWORK IN HAND TO MEET TAXI AT [facility].
== END 2024-08-30 17:12 | disposition home or self-care (01) | DRG 329 ==
LOC: ER 08:05 → MEDS 08:06 → SURS 18:25
PROVIDERS: Emergency Medicine; Student in an Organized Health Care Education/Training Program; Surgery; ADMIT Internal Medicine
PROC: 0DBU0ZZ Excision of Omentum, Open Approach (ICD-10-PCS; 2024-08-23)
PROC: 0DN80ZZ Release Small Intestine, Open Approach (ICD-10-PCS; 2024-08-23)
PROC: 0JB80ZZ Excision of Abdomen Subcutaneous Tissue and Fascia, Open Approach (ICD-10-PCS; 2024-08-23)
PROC: 8E0W0CZ Robotic Assisted Procedure of Trunk Region, Open Approach (ICD-10-PCS; 2024-08-23)
PROC: 5A0935A Assistance with Respiratory Ventilation, Less than 24 Consecutive Hours, High Flow/Velocity Cannula (ICD-10-PCS; 2024-08-23)
PROC: 0DB80ZZ Excision of Small Intestine, Open Approach (ICD-10-PCS; principal; 2024-08-23 14:00)
PROC: 0WUF0JZ Supplement Abdominal Wall with Synthetic Substitute, Open Approach (ICD-10-PCS; 2024-08-23 14:00)
PROC: 5A09357 Assistance with Respiratory Ventilation, Less than 24 Consecutive Hours, Continuous Positive Airway Pressure (ICD-10-PCS; 2024-08-24)
DX: K43.6 Other and unspecified ventral hernia with obstruction, without gangrene (principal); J96.01 Acute respiratory failure with hypoxia; N17.9 Acute kidney failure, unspecified; I96 Gangrene, not elsewhere classified; K43.0 Incisional hernia with obstruction, without gangrene; F17.210 Nicotine dependence, cigarettes, uncomplicated; E87.6 Hypokalemia; E11.9 Type 2 diabetes mellitus without complications; I10 Essential (primary) hypertension; Z71.6 Tobacco abuse counseling; K57.30 Diverticulosis of large intestine without perforation or abscess without bleeding; Z99.81 Dependence on supplemental oxygen; Z98.890 Other specified postprocedural states
CPT/HCPCS: 36415; 71045; 74177; 74250; 80048; 80053; 81003; 82947; 83605; 83690; 83735; 84100; 84478; 85014; 85018; 85025; 88302; 88305; 88307; 93005; 93010; 94640; 94664; 94762; 96361; 96374-59; 96375; 96376; 97110; 97161; 97165; 97530; 99285-25; A9270; G0378; J1100; J1171; J1650; J1815; J1885; J2270; J2371; J2405; J2543; J2704; J3010; J3411; J3480; J7050; J7060; J7120; Q9967